=== PATIENT | male | born 1955 | race Caucasian/White ===

== ENCOUNTER 2018-01-04 09:12 | Day surgery (SDC) | payer OTHER, SELFPAY ==
--- NOTE | 2018-01-04 | IMM_PTH ---
PATIENT: JEREMY CONDE [place] [facility] [id number] AGE/SX: 62/M ROOM: RE01/04/[address]: Dr. Juaquin Zhou MD : 1955 BED: DIS: 01/04/2018 SPEC #: [id number] RECD: 01/08/18 09:47 STATUS: PHYLICIA REQ #: [id number] HAWA: 01/04/18 00:[address]: Juaquin Zhou DEPT: IMMUNOHISTOCHEMISTRY RECD BY: Tiana Briseno ENTERED: 01/08/18 09:50 SP TYPE: IMMUNO OTHR DR: Dr. Basil Lemus DO Tissues: B - Lymph node of neck, NOS Procedures: BCL-2 (add) BCL-6 (add) CD10 (add) CD20 (add) CD23 (add) CD43 (add) CD45 (add) CD5 (add) CD79A (add) CYCLIN (add) KI-67 (add) CD3 (initial) PHYSICIAN & [address] [address] SPECIMEN INFORMATION: Tissue Source: B ? Right cervical lymph node Clinical Info: Recurrent non-Hodgkin?s lymphoma, cervical lymphadenopathy Specimen Number: [id number] CPT code: 68408, 47778 x11 METHODOLOGY: Deparaffinized sections of prefer/formalin-fixed tissue or PAP/DQ stained slides are incubated with monoclonal/polyclonal antibodies/oligonucleotide probes. Localization is made via biotin free immunoperoxidase method. Appropriate controls are performed and reacted as expected. Results on target cell population are indicated in the following table: RESULTS: ANTIBODY / CLONE RESULT Block B CD3 (PS1) negative CD5 (SP10) positive CD20 (L26) positive CD43 (L60) positive CD45 (RP2/18) positive CD79a (11E3) positive CD10 (56C6) negative CD23 (1B12) negative BCL-2 (bcl-2/100/D5) positive BCL-6 (FY797P/A8) negative Cyclin D1/BCL-1 (SP4) positive Ki-67 (30-9) positive, ~38% These tests were developed and their performance characteristics determined by [facility]. They may not have been cleared or approved by the U.S. Food and Drug Administration. The FDA has determined that such clearance or approval is not necessary. INTERPRETATION: B. Right cervical lymph node, biopsy: Consistent with involvement by non-Hodgkin B-cell lymphoma, mantle cell lymphoma. SJ:elias 01/08/18 Case has been reviewed in consultation with Dr. Ralph who concurs with the above diagnosis. IDC:[email or web address]
--- NOTE | 2018-01-04 | LYMN_PTH ---
PATIENT: JEREMY CONDE V LOC: [facility] [place][id number] AGE/SX: 62/M ROOM: RE01/04/[address]: Dr. Juaquin Zhou MD : 1955 BED: DIS: 01/04/2018 SPEC #: [id number] RECD: 01/04/18 12:44 STATUS: PHYLICIA TYSON #: [id number] HAAW: 01/04/18 00:[address]: Juaquin Zhou DEPT: SURGICAL PATHOLOGY RECD BY: Tiana Briseno ENTERED: 01/04/18 14:13 SP TYPE: LYMPH NODE OTHR DR: Dr. Basil Lemus, Tissues: A - LYMPH NODE BIOPSY B - Lymph node of neck, NOS Procedures: Frozen Section (charge) Surgery Specimen Level IV HEADER OPERATION: Excision deep cervical lymph node, frozen section PRE-OP DIAGNOSIS: Recurrent non-Hodgkin?s lymphoma, cervical lymphadenopathy TISSUE SUBMITTED: A ? Right cervical lymph node for frozen section at 1240, B ? Right cervical lymph node for genetic testing and lymph node protocol sent fresh to lab at 1240 FROZEN SECTION DIAGNOSIS A. Right cervical lymph node, biopsy: Consistent with involvement by lymphoma. SJ:elias 01/04/18 MICROSCOPIC DIAGNOSIS A. Right cervical lymph node, biopsy: Consistent with involvement by non-Hodgkin B-cell lymphoma. B. Right cervical lymph node, biopsy: Consistent with involvement by non-Hodgkin B-cell lymphoma, Mantle cell lymphoma. Flow cytometry study from [facility] shows CD5 positive B-cell lymphoma is detected. See comment. SJ:elias 01/07/18 COMMENT B. The specimen is evaluated at the time of touch imprint by Dr. Mcintosh. Immediate Evaluation = involvement by lymphoma. B. Immunohistochemistry ([id number]) supports the above diagnosis. Case has been reviewed in consultation with Dr. Ralph who concurs with the above diagnosis. IDC:AM MICROSCOPIC DESCRIPTION Slides are reviewed. GROSS DESCRIPTION A - Received fresh for frozen section diagnosis labeled with the patient's name is a specimen designated right cervical lymph node. The specimen consists of a piece of ladd-pink tissue measuring 1 x 1 x 0.5 cm. The specimen is bisected and submitted entirely for frozen section diagnosis in one cassette. B - Received fresh for lymphoma protocol labeled with the patient's name is a specimen designated right cervical lymph node. The specimen consists of a piece of ladd soft tissue measuring 2 x 1 x 0.5 cm. The specimen is bisected and reveals ladd-pink cut surfaces. Six touch imprints are prepared (three stained with Diff-Quick and three stained with H & E stain). A section is submitted for flow cytometry studies. The entire specimen is submitted in one cassette. / SJ:rg 01/04/18 TC:0 [facility]: [id number] x2, [id number] ADDENDUM ADDENDUM ADDENDUM ADDENDUM ADDENDUM ADDENDUM ADDENDUM ADDENDUM ADDENDUM ADDENDUM 02/26/2018 10:35 ADDENDUM 02/26/2018 10:35 ADDENDUM 02/26/2018 10:35 ADDENDUM 02/26/2018 10:35 ADDENDUM 12/23/2018 10:05 ADDENDUM 02/26/2018 10:35 This addendum is added to incorporate an outside pathology consultation report. The case was examined at [facility] (#[id number]) and the following diagnosis was rendered. Right cervical lymph node, excisional biopsy: Mantle cell lymphoma (WHO classification). Please see complete above mentioned consultation report in EMR This addendum is added to incorporate an outside pathology consultation report. The case was examined at [facility] (#[id number]) and the following diagnosis was rendered. Lymph node, right cervical excision: Mantel cell lymphoma. Please see complete above mentioned consultation report in EMR
--- NOTE | 2018-01-04 09:32 | EKG12_ITS ---
Test Reason : PREOP Blood Pressure : / mmHG Vent. Rate : 083 BPM Atrial Rate : 083 BPM P-R Int : 150 ms QRS Dur : 092 ms QT Int : 376 ms P-R-T Axes : 072 078 083 degrees QTc Int : 441 ms Normal sinus rhythm Normal ECG No previous ECGs available Confirmed by RODRIGUEZ LYNN, JIM ([id number]), science editor MARK BEAR ([id number]) on 01/08/2018 3:01:41 PM Referred By: Juaquin Zhou Confirmed By:JIM FRIAS MD
[2018-01-04 10:00] VITALS: BP 136/90; PULSE 81; RESP 16; TEMP 36.8; O2SAT 97; BMI 27.2
[2018-01-04 10:44] LABS: Anion Gap 7 (5-15); BUN 11 mg/dL (7-18); BUN/Creat Ratio 11.2 RATIO (10-20); Calcium,Total 8.8 mg/dL (8.5-10.1); Chloride 107 mmol/L (98-107); Creatinine, Serum 0.98 mg/dL (0.70-1.30); EST Glomerular Filtration Rate 83 mL/min (>60); Est Glom Filt Rate - Afr Amer 100 mL/min (>60); Glucose 126 mg/dL (74-106); Sodium Level 141 mmol/L (136-145)
[2018-01-04] MEDS: Bacitracin 500 UNITS/GM PACKET (12:58)
[2018-01-04 13:05] VITALS: BP 136/90; BP 164/77; PULSE 89; RESP 16; TEMP 36.6; O2SAT 95
--- NOTE | 2018-01-04 13:11 | OP.PCM_ITS ---
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 He has a history of mantle cell lymphoma and this is worrisome for recurrence and he was sent by oncology for biopsy for positive identification and further assessment for treatment. The above procedure was offered to allow for positive identification of the lesion and he is eager to proceed. The risks, alternatives, potential benefits, and complications were discussed at length and any questions answered to the patient and/or caregiver's satisfaction. Witnessed informed consent was obtained in the office, and the patient and/or caregiver was agreeable to proceed. Procedure went as follows: The patient was identified in the preoperative holding and brought to the operating room was placed under general anesthesia and intubated. When appropriate anesthesia is obtained, the right neck was prepped and draped in usual sterile fashion and the planned incision incision site posterior to the sternocleidomastoid muscle injected with 1% lidocaine with 100,000 epinephrine for a total of 1 cc. After lying for vasoconstriction , a 15 blade scalpel was used to create a 4 cm incision over the palpable enlarged lymph node site. Dissection was then carried out inferior to the sternocleidomastoid where a large friable lymph node was encountered. This was then resected and sent for pathologic evaluation which confirmed changes consistent with lymphoma with further studies pending. The wound base was then cauterized with bipolar cautery for hemostasis and then closed deeply with interrupted 3-0 Vicryl sutures to obliterate the space followed by closure of the subcutaneous tissues with the same suture. Finally a running 5-0 Monocryl sutures placed to the skin for closure of the skin edge and bacitracin ointment applied. The patient was then returned to anesthesia where he was revived and expelled without competition having tolerated the procedure well. Type of Anesthesia:: General Anesthesiologist: Dustin Cross Special Medications: none Specimen's removed: Deep cervical lymph node Drains: none Estimated Blood Loss (mL): 0 mL Fluids Replaced: 0 mL Grafts/Implants Used: none - Complications none - Admit VTE Documentation VTE Present on Admission: No VTE Mechan Device Prophylaxis: SCD's VTE Pharm Prophylaxis ordered?: No
--- NOTE | 2018-01-04 13:12 | DCINST_ITS ---
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 Call your doctor if your incision/area has: Increased Pain/ Swelling, Swelling at the incision site Call your doctor if you observe: Fever of 101 or Higher, Uncontrolled pain Cleanse incision/area with: Keep Dressing Clean & Dry Additional Dressing/Incision Instructions:: May get incision wet in 48 hours Allergies/Adverse Reactions: Allergies morphine Allergy (Verified 01/03/18 08:40) Hives Medications to take at Discharge Acyclovir [Zovirax] 400 mg PO BID 01/03/18 Albuterol Aerosols [Ventolin Aerosols] 2.5 mg INHALATION Q2H PRN PRN 01/03/18 Atorvastatin Calcium [Lipitor] 20 mg PO DAILY 01/03/18 Budesonide/Formoterol 160/4.5 [Symbicort 160/4.5 Mcg Inhaler (SP)] 2 puff INHALATION BID 01/03/18 Gabapentin [Neurontin] 600 mg PO DAILY 01/03/18 Gabapentin [Neurontin] 900 mg PO QHS 01/03/18 Lorazepam [Ativan] 0.5 mg PO QHS 01/03/18 Montelukast [Singulair] 10 mg PO DAILY 01/03/18 Oxycodone [Oxyir] 5 mg PO BID 01/03/18 RX: Melatonin 6 mg PO QHS 01/03/18 RX: Mirtazapine 45 mg PO QHS 01/03/18 Primary Care Physician: Basil Lemus [Primary Care Provider] - Test Results: Test results from this visit will be discussed in further detail at your follow- up appointment, if applicable. Please Follow Up With: Juaquin Zhou MD When: 2 weeks
[2018-01-04 13:15] VITALS: BP 131/72; BP 136/90; PULSE 84; RESP 16; O2SAT 92
[2018-01-04 13:30] VITALS: BP 124/80; BP 136/90; PULSE 76; RESP 16; O2SAT 92
[2018-01-04 13:48] VITALS: BP 128/77; BP 136/90; PULSE 74; RESP 16; TEMP 36.8; O2SAT 92
[2018-01-04] MEDS: Acetaminophen 325 MG Tablet 650 MG PO (14:27)
[2018-01-04 14:56] VITALS: BP 136/90; BP 160/100; RESP 20; TEMP 36.7
== END 2018-01-04 15:00 | disposition home or self-care (01) ==
LOC: SDC 09:20 → AC 09:55
PROVIDERS: Visit Provider Otolaryngology
PROC: (CPT 38510; principal; 2018-01-04 10:55)
DX: C83.18 Mantle cell lymphoma, lymph nodes of multiple sites (principal); R59.0 Localized enlarged lymph nodes; F17.210 Nicotine dependence, cigarettes, uncomplicated; K21.9 Gastro-esophageal reflux disease without esophagitis; J45.909 Unspecified asthma, uncomplicated; I10 Essential (primary) hypertension; E78.00 Pure hypercholesterolemia, unspecified; K58.9 Irritable bowel syndrome, unspecified; G25.81 Restless legs syndrome; Z86.73 Personal history of transient ischemic attack (TIA), and cerebral infarction without residual deficits
CPT/HCPCS: 38510; 80048; 88305; 88307; 88331; 88341; 88342; 93005; J7120; A4216; J2405